=== PATIENT | female | born 1985 | race Two or more races ===

== ENCOUNTER 2024-10-24 15:36 | Emergency (ER) | payer OTHER ==
[~2024-10-24] VITALS: Ht 172.7 cm; Wt 113.4 kg
[2024-10-24 19:14] LABS: URINE APPEARANCE Clear; URINE BILIRRUBIN Negative (NEGATIVE); URINE BLOOD Large; URINE COLOR Yellow; URINE GLUCOSE Negative (NEGATIVE); URINE KETONE Negative (NEGATIVE); URINE LEUKOCYTE Negative; URINE NITRATE Negative; URINE PROTEIN Negative (NEGATIVE); URINE UROBILINOGEN 0.2 E.U./dl
[2024-10-24 19:15] LABS: CALCIUM 8.9 mg/dL (8.5-10.1); CREATININE SERUM 0.73 mg/dL (0.55-1.02); GFR 88.75; POTASSIUM 4.02 mEq/L (3.5-5.1)
[2024-10-24 19:18] LABS: URINE BACTERIA 12.2 uL (0.0-1933); URINE EPITHELIAL CELLS 7.9 uL (0.0-38.8); URINE RBC 474.6 uL (0.0-20.8); URINE WBC 2.8 uL (0.0-23.2)
[2024-10-24 19:21] LABS: URINE CAST 0.29 uL (0.0-1.40)
[2024-10-24 19:22] LABS: HEMATOCRIT 32.2 % (36.0-45.00); MEAN CORPUSCULAR HEMOGLOBIN 20.5 pg (27.00-32.0); PLATELET COUNT 329 K/uL (150-450); RED BLOOD COUNT 4.87 M/uL (4.00-6.00); RED CELL DISTRIBUTION WIDTH 19.7 % (11.5-14.5)
[2024-10-24 19:34] LABS: MEAN CELL VOLUME 66.1 fL (80.00-100.00)
== END 2024-10-24 20:00 | disposition home or self-care (01) ==
LOC: ER 15:37
PROVIDERS: General Practice
DX: R10.2 Pelvic and perineal pain (principal); N93.9 Abnormal uterine and vaginal bleeding, unspecified; D25.9 Leiomyoma of uterus, unspecified; N83.292 Other ovarian cyst, left side; M79.671 Pain in right foot